=== PATIENT | female | born 1975 | race Caucasian/White ===

== ENCOUNTER 2018-06-16 12:47 | Emergency (ER) | payer OTHER, SELFPAY ==
--- NOTE | 2018-06-16 12:57 | ED.GENADULT ---
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 She states that she was working with the bees at the time. Was wearing her suit the time. States that she was attacked by the bees. Has never had a anaphylactic reaction. Did place [id number] skin remedies over the stings prior to arrival. Is not having any nausea or vomiting or problems breathing. Related Data Home Medications Medication Instructions Recorded Confirmed citalopram 40 mg PO QPM 06/16/18 06/16/18 estradiol 1 mg PO QPM 06/16/18 06/16/18 losartan 50 mg PO QPM 06/16/18 06/16/18 metformin 500 mg PO BID 06/16/18 06/16/18 Allergies Allergy/AdvReac Type Severity Reaction Status Date / Time Penicillins [PENICILLINS] Allergy Severe PT STATES Verified 06/16/18 13:03 I HAD TO HAVE MY HEART RESTARTED Review of Systems Constitutional Denies fever(s) ENT Ears, Nose, Mouth, and Throat: Denies vertigo Cardiovascular Denies chest pain and Denies dyspnea Respiratory Denies cough and Denies dyspnea Gastrointestinal Gastrointestinal: Denies abdominal pain, Denies nausea and Denies vomiting Musculoskeletal Denies myalgias and Denies arthralgias Integumentary/Breasts Comments: Bee stings Neurologic Denies behavioral changes and Denies vertigo Psychiatric Denies behavioral changes Hematologic/Lymphatic Denies easy bleeding and Denies easy bruising [facility] Medical History Healthy adult (Acute) Surgical History History of third molar tooth extraction Status post laparoscopic supracervical hysterectomy (04/19/16) Status post laparoscopy Social History Smoking Status: Never smoker Exam Initial Vital Signs Initial Vital Signs: Vital Signs Temperature 98.1 F 06/16/18 12:59 Pulse Rate 93 H 06/16/18 12:59 Respiratory Rate 18 06/16/18 12:59 Blood Pressure 180/91 H 06/16/18 12:59 Pulse Oximetry 98 06/16/18 12:59 Const General: cooperative, healthy appearing, comfortable, well developed, well groomed and No acute distress Orientation: alert, awake and oriented x3 HENMT Head: normal to inspection and normocephalic Resp Effort & Inspection: normal respiratory effort and able to speak in complete sentences Cardio Rate: tachycardic Rhythm: regular rhythm Heart Sounds: no murmurs Pulses: radial pulses present GI Inspection: non-distended Palpation: soft, No firm and No tender Skin Other: Multiple bee stings on bilateral lower extremities with stingers in place. Neuro General: alert, awake and oriented x3 Course Orders Ordered: Discontinued Medications Prednisone (Deltasone) 40 mg PO NOW ONE Stop: 06/16/18 13:07 Last Admin: 06/16/18 13:10 Dose: 40 mg Vital Signs - 8 hr 06/16/18 12:59 Temperature 98.1 F Pulse Rate 93 H Respiratory Rate 18 Blood Pressure 180/91 H Pulse Oximetry 98 Medical Decision Making MDM Narrative Medical decision making narrative: No respiratory distress. No signs of anaphylaxis. Patient had approximately 15 stings on bilateral lower extremities. I did remove the stingers for many of those stings. There is no signs of infection around the area. Patient was given a dose of steroids here in the emergency department. Will hold on any antibiotics for now. Patient was given return precautions. She expressed understanding and agreement with plan. Discharge Plan Departure Patient Disposition: Home Clinical Impression: Bee sting reaction Instructions: How to Care for an Insect Bite or Sting, Insect Bites and Stings (Alternative Therapy), DI for Insect Bites and Stings Activity Restrictions/Additional Instructions: Recommend that you keep the sites on her lower extremity clean with soap and water. Return to the emergency department for any new symptoms, problems breathing, signs of infection, or any other concerning symptoms. Prescriptions: No Action losartan 50 mg tablet 50 mg PO QPM RF: 0 metformin 500 mg tablet 500 mg PO BID RF: 0 citalopram 40 mg tablet 40 mg PO QPM RF: 0 estradiol 1 MG tablet 1 mg PO QPM RF: 0
[2018-06-16 12:59] VITALS: BP 180/91; PULSE 93; RESP 18; TEMP 36.7; O2SAT 98
[2018-06-16] MEDS: predniSONE 20 MG TABLET 40 MG PO (13:10)
[2018-06-16] MEDS: HYDROCODONE/ACET 5/325 TABLET 1 TAB PO (13:56)
[2018-06-16 14:17] VITALS: BP 155/106; PULSE 96; RESP 18; O2SAT 98
== END 2018-06-16 14:16 | disposition home or self-care (01) ==
PROVIDERS: Emergency Provider Emergency Medicine; PCP Obstetrics & Gynecology
DX: T63.441A Toxic effect of venom of bees, accidental (unintentional), initial encounter (principal)
CPT/HCPCS: 99282; 99283

== ENCOUNTER → 2019-03-14 14:04 | Outpatient (CLI) | payer OTHER, SELFPAY ==
[2019-03-14 14:30] LABS: Hemoglobin A1C% w Est Avg Glu 5.5 % (4.0-6.0)
== END ==
PROVIDERS: PCP Student in an Organized Health Care Education/Training Program; Visit Provider Student in an Organized Health Care Education/Training Program
DX: E11.9 Type 2 diabetes mellitus without complications (principal)
CPT/HCPCS: 36415; 83036

== ENCOUNTER → 2019-04-06 14:52 | Outpatient (CLI) | payer OTHER, SELFPAY ==
--- NOTE | 2019-04-06 14:54 | DI.MRI.S_ITS ---
PROCEDURE: MR CERVICAL SPINE WO CON INDICATIONS: Neck pain. Left arm/hand numbness TECHNIQUE: Noncontrast sagittal T1 spin echo and T2 fast spin echo, sagittal STIR, foraminal oblique sagittal T2 fast spin echo, and axial gradient echo or T2 fast spin echo through the cervical spine. COMPARISON: None. FINDINGS: Image quality: Excellent. Alignment and Curvature: There is normal bony alignment. Bone Marrow: Marrow demonstrates normal overall signal. Spinal Cord: Visualized spinal cord has normal size and signal. No cerebellar tonsillar herniation. Paraspinous Soft Tissues: No paravertebral masses. Prevertebral soft tissues are normal in thickness. C2-C3: Normal appearance. C3-C4: Normal appearance. C4-C5: Mild to moderate degenerative disc disease with disc height reduction and desiccation and a posterior midline disc protrusion that impinges upon the anterior midline of the cervical cord at this level but does not distort the cord. Focal anterior mild spinal stenosis is present as a result.. C5-C6: The degenerative disc disease at this level is moderately severe, greater at into the left of midline than to the right, with a focal contiguous disc herniation/disc protrusion that extends to impinge significantly upon the left anterior cervical cord, and also there is effacement of CSF from the anterior and posterior thecal sac at this level from a broad-based transverse disc bulge superimposed. Moderately severe to severe spinal stenosis at this level is present greater on the left than the right. C6-C7: Normal appearance except for a slight degree of spinal stenosis due to a slight posterior transverse broad-based disc bulge. C7-T1: Normal appearance. IMPRESSION: 1. A free herniated disc fragment is not found. 2. There is severe spinal stenosis focally at C5-6 from what likely is a acute or subacute disc protrusion contiguous with the left posterior disc annulus, impinging upon and distorting the left anterior cervical cord with superimposed spinal stenosis at this level from generalized posterior disc bulging. 3. C4-5 degenerative disc disease is mild to moderate, with focal midline mild spinal stenosis impinging on the anterior cord to a mild degree at this level. Dictated by: Yonatan Hernandez M.D. on 04/06/2019 at 17:42 Approved by: Yonatan Hernandez M.D. on 04/06/2019 at 17:46
--- NOTE | 2019-04-06 14:54 | DI.MG.S_ITS ---
BILATERAL DIGITAL SCREENING MAMMOGRAM 3D/2D WITH CAD: 04/06/2019 CLINICAL: Routine screening. Comparison is made to exam dated: 10/18/2017 mammogram - [facility]. There are scattered fibroglandular elements in both breasts. Current study was also evaluated with a Computer Aided Detection (CAD) system. No significant masses, calcifications, or other findings are seen in either breast. There has been no significant interval change. IMPRESSION: NEGATIVE There is no mammographic evidence of malignancy. A 1 year screening mammogram is recommended. This exam was interpreted at Station ID: [id number]. NOTE: For mammograms, a report in lay terms will be sent to the patient. Approximately 15% of breast malignancies will not be visualized mammographically. In the management of a palpable breast mass, a negative mammogram must not discourage biopsy of a clinically suspicious lesion. Electronically Signed By: Rodger mcleod/kathleen:04/07/2019 10:49:45 letter sent: Normal Exam ACR BI-RADS Category 1: Negative [id number]
== END ==
PROVIDERS: PCP Student in an Organized Health Care Education/Training Program; Visit Provider Student in an Organized Health Care Education/Training Program
DX: Z12.31 Encounter for screening mammogram for malignant neoplasm of breast (principal); R20.2 Paresthesia of skin; M50.321 Other cervical disc degeneration at C4-C5 level; M50.322 Other cervical disc degeneration at C5-C6 level; M48.02 Spinal stenosis, cervical region
CPT/HCPCS: 72141; 77063; 77067

== ENCOUNTER → 2019-07-19 15:31 | Outpatient (CLI) | payer OTHER, SELFPAY ==
[2019-07-19 16:10] LABS: Add Manual Diff / Slide Review NO; Basophils Absolute Auto 100 /uL (0-100); Basophils Percent Auto 0.8 % (0-2); Eosinophils Absolute Auto 100 /uL (0-450); Eosinophils Percent Auto 1.9 % (2-4); Hematocrit 42.3 % (36-46); Hemoglobin 14.4 g/dL (12.0-16.0); Lymphocytes Absolute Auto 2600 /uL (1100-4500); Lymphocytes Percent Auto 35.1 % (25-40); Mean Corpuscular HGB Conc 34.1 % (30-36); Mean Corpuscular Hemoglobin 31.1 PG (26-34); Mean Corpuscular Volume 91.1 fL (80-100); Monocytes Absolute Auto 400 /uL (0-900); Monocytes Percent Auto 5.8 % (3-14); Neutrophils Absolute Auto 4100 /uL (1500-7000); Neutrophils Percent Auto 56.4 % (50-75); Platelet Count 265 X10^3/uL (150-400); Red Blood Cell Count 4.65 X10^6/uL (4.0-5.2); Red Cell Distribution Width 13.2 % (11.6-14.8); White Blood Cell Count 7.3 X10^3/uL (4.5-11.0)
[2019-07-19 16:47] LABS: Hemoglobin A1C% w Est Avg Glu 5.5 % (4.0-6.0)
[2019-07-19 17:05] LABS: BUN Creatinine Ratio 21.3 (6-22); Blood Urea Nitrogen 17 mg/dL (7-17); Calcium 9.5 mg/dL (8.4-10.2); Carbon Dioxide 27 mmol/L (22-32); Chloride 101 mmol/L (98-107); Estimated Glomerular Filt Rate > 60.0 mL/min (>60); Glucose 160 mg/dL (70-100); HEMOLYSIS < 15 (0-50); Potassium 4.2 mmol/L (3.4-5.1); Sodium 137 mmol/L (137-145)
[2019-07-19 18:15] LABS: Prothrombin Time 11.1 SECONDS (10.1-12.7)
[2019-07-19 18:18] LABS: PTT Partial Thromboplastin Tim 34 SECONDS (26.4-36.2)
== END ==
PROVIDERS: Family Provider Student in an Organized Health Care Education/Training Program; PCP Student in an Organized Health Care Education/Training Program; Visit Provider Neurological Surgery
DX: Z01.818 Encounter for other preprocedural examination (principal); M54.12 Radiculopathy, cervical region
CPT/HCPCS: 36415; 80048; 83036; 85025; 85610; 85730; 87077; 87081; 87147

== ENCOUNTER → 2020-07-03 15:48 | Outpatient (CLI) | payer OTHER, SELFPAY ==
[2020-07-04 08:50] LABS: COVID19 Sendout Not Detected (Not Detect)
== END ==
PROVIDERS: Family Provider Student in an Organized Health Care Education/Training Program; PCP Student in an Organized Health Care Education/Training Program; Visit Provider Physician Assistant
DX: Z11.59 Encounter for screening for other viral diseases (principal)
CPT/HCPCS: 87635

== ENCOUNTER 2020-07-06 15:05 | Emergency (ER) | payer BC, SELFPAY ==
[2020-07-06] VITALS (7 sets, daily range): BP systolic 170–177; BP diastolic 72–102; PULSE 62–71; RESP 12–14; TEMP 37.1; O2SAT 95–99
--- NOTE | 2020-07-06 15:53 | DI.CT.S_ITS ---
PROCEDURE: CT ABDOMEN PELVIS W CON INDICATIONS: RLQ hip pain with fever TECHNIQUE: After the administration of intravenous contrast, 5 mm thick sections acquired from the diaphragm to the symphysis. 5 mm coronal and sagittal reformats were acquired. For radiation dose reduction, the following was used: automated exposure control, adjustment of mA and/or kV according to patient size. COMPARISON: None. FINDINGS: Image quality: Excellent. ABDOMEN: Lung bases: Lung bases are clear. Heart size is normal. Solid organs: Liver is normal in size and enhancement. Diffuse fatty liver infiltration is noted. Gallbladder wall is not thickened. Biliary system is non dilated. Pancreas enhances normally. Spleen is normal in size and enhancement. No adrenal nodules. Kidneys demonstrate normal size and enhancement, without hydronephrosis. Peritoneum and bowel: A normal appendix is seen. No focal right lower quadrant inflammatory changes are seen. Bowel loops demonstrate normal wall thickness and caliber. No free fluid or air. Nodes and vessels: No retroperitoneal or mesenteric adenopathy by size criteria. Aorta and inferior vena cava are normal in size. Miscellaneous: No ventral hernias. PELVIS: Genitourinary: Bladder wall thickness is normal. This patient is status post supracervical hysterectomy. No adnexal masses are seen. Miscellaneous: No inguinal hernias or adenopathy. Bones: In this patient with this given history, scrutiny is given to the right hip. Degenerative changes are seen in the right hip, without joint effusion or significant surrounding inflammatory change. No suspicious bony lesions. No vertebral body compression fractures. IMPRESSION: No significant right hip abnormality is seen. Normal appendix. Incidental note is made of: Fatty infiltration of the liver Supracervical hysterectomy Dictated by: Thong Browning M.D. on 07/06/2020 at 15:40 Approved by: Thong Browning M.D. on 07/06/2020 at 15:42
--- NOTE | 2020-07-06 15:56 | ED_ITS ---
HPI - Fever General Chief Complaint: Weakness Stated Complaint: Sick Last Week, Severe Back Pain Time Seen by Provider: 07/06/20 15:22 Source: patient Mode of arrival: Wheelchair Limitations: no limitations History of Present Illness HPI Narrative: Patient is a 44 old female who presents with body aches fever and right hip pain and abdominal pain. She states that about 6 days ago she developed fever and body aches in severe tiredness. She says that she actually slept for at least 2 days without getting up eating or drinking. She had body aches all over she progressively got a little bit better she actually had a COVID-19 test 4 days ago and it was negative however she has this right sort of hip full length abdominal pain which she cannot find a comfortable position for. She denies any painful or frequent urination. She does have a history of polycystic ovarian disease and endometriosis. She states that she and her tried to have intercourse about a week and half ago she says he was unable to enter stating that there is a wall. She denies any vaginal discharge or foul smell. complaint: fever and malaise Temperature Source: subjective Related Data Home Medications Medication Instructions Recorded Confirmed gabapentin 600 mg tablet 600 mg PO DAILY 04/22/20 07/03/20 Previous Rx's Medication Instructions Recorded methocarbamol 750 mg tablet 750 mg PO TID PRN #90 tab 09/26/19 clonazepam 0.5 mg tablet 0.5 mg PO BID #60 tab 12/21/19 citalopram 20 mg tablet 20 mg PO QPM #90 tab 01/02/20 propranolol 40 mg tablet 40 mg PO BID #180 tab 03/25/20 diazepam [Valium] 5 mg PO Q12HR PRN #10 tab 07/06/20 hydrocodone-acetaminophen 1 tab PO Q6H PRN #10 tab 07/06/20 Allergies Allergy/AdvReac Type Severity Reaction Status Date / Time Penicillins [PENICILLINS] Allergy Severe PT STATES Verified 07/03/20 15:47 I HAD TO HAVE MY HEART RESTARTED amoxicillin Allergy Rash, Verified 07/03/20 15:47 Fever, and Flu like symtems amlodipine AdvReac Intermediate Dizziness Verified 07/03/20 15:47 Review of Systems Review of Systems ROS Unobtainable: All systems reviewed & are unremarkable except as noted in HPI and below Constitutional Constitutional: Reports body ache(s), Reports chills, Reports daytime sleepiness, Reports fatigue, Reports fever(s), Reports lethargy and Reports poor appetite ENT Ears, Nose, Mouth, and Throat: Denies change in voice, Denies neck pain and Denies sore throat Cardiovascular Cardiovascular: Denies chest pain, Denies irregular heart rhythm, Denies lightheadedness, Denies palpitations, Denies dyspnea, Denies dyspnea on exertion and Denies orthopnea Respiratory Respiratory: Denies cough, Denies dyspnea, Denies dyspnea on exertion and Denies wheezing Gastrointestinal Gastrointestinal: Denies abdominal pain, Denies change in bowel habits, Denies diarrhea, Denies nausea and Denies vomiting Musculoskeletal Musculoskeletal: Reports myalgias, Reports arthralgias and Denies neck pain Integumentary/Breasts Skin/Breast: Denies pruritus, Denies erythema, Denies rash and Denies wounds Endocrine Endocrine: Reports fatigue and Denies palpitations Allergic/Immunologic Allergic/Immunologic: Denies wheezing Patient History Medical History Abnormal Pap smear of cervix (Acute ~1985) Chicken pox (Resolved ~1982) Depression (Chronic ~2011) Endometriosis (Acute ~1985) Fibroids (Acute ~1985) Healthy adult (Acute) Heavy menstrual period (Chronic ~1985) Hypertension (Acute ~1999) Infertility (Chronic ~1985) Insomnia (Chronic) Irregular menstrual cycle (Chronic ~1985) Morbid obesity with body mass index (BMI) of 40.0 to 49.9 (Chronic) Obesity (BMI 30-39.9) (Resolved) Obstructive sleep apnea (Chronic) Ovarian cyst (Chronic ~1985) Painful menstrual periods (Chronic ~1985) PCOS (polycystic ovarian syndrome) (Chronic) URI (upper respiratory infection) (Acute) Surgical History Anesthesia (Resolved) Deviated septum (Resolved) H/O knee surgery (Resolved) H/O wrist surgery (Resolved) History of facial surgery (Resolved ~2010) History of surgery on right wrist (Resolved ~1982) History of third molar tooth extraction (Resolved) Status post cervical discectomy (Acute) Status post cervical spinal fusion (Acute) Status post laparoscopic supracervical hysterectomy (Resolved 04/19/16) Status post laparoscopy (Resolved ~1999) Family History Mother COPD (chronic obstructive pulmonary disease) Hypertension Depression Brother Depression Grandfather Liver disease Grandmother Diabetes mellitus Hypertension Social History Smoking Status: Former smoker Smoking Status: Former smoker alcohol intake frequency: 0-2 drinks per day Substance Use Type: does not use Exam Initial Vital Signs Initial Vital Signs: Vital Signs Temperature 98.7 F 07/06/20 15:25 Pulse Rate 64 07/06/20 15:25 Respiratory Rate 14 07/06/20 15:25 Blood Pressure 172/82 H 07/06/20 15:25 Pulse Oximetry 97 07/06/20 15:25 GENERAL: The patient lying flat on gurney overweight female but no acute distress and in no acute distress. HEENT: Head atraumatic,EOMI, pupils reactive, face symmetric, moist mucous membranes CARDIOVASCULAR: Regular rate and rhythm without murmurs, rubs or gallops. RESPIRATORY: Breath sounds equal bilaterally, no wheezes rales or rhonchi. ABDOMEN: Soft, nontender. Normoactive bowel sounds all 4 quadrants. No guarding or rebound. EXTREMITIES: Normal range of motion, no clubbing or edema. Neurovascularly intact. No pain with right hip internal and external rotation no erythema BACK: Tender right lower lumbar a buttock area no midline tenderness NEUROLOGICAL: Alert and oriented x4.Normal gait and speech. SKIN: Warm, dry, no laceration, no petechiae, no rashes or lesions. Course Orders Ordered: Discontinued Medications Hydrocodone Bitart/Acetaminophen (Vicodin 5/325 Prepack) 1 bottle MISC SEEINSTR ONE Stop: 07/06/20 18:04 Last Admin: 07/06/20 18:06 Dose: 1 bottle Documented by: JOZEF Sodium Chloride (Normal Saline 0.9%) 1,000 mls @ 1,000 mls/hr IV CONT BARTOLO Last Infusion: 07/06/20 18:01 Dose: 0 mls/hr Documented by: Admin: 07/06/20 16:04 Dose: 1,000 mls/hr Documented by: JOZEF Ketorolac Tromethamine (Toradol) 30 mg IV NOW ONE Stop: 07/06/20 17:39 Last Admin: 07/06/20 17:42 Dose: 30 mg Documented by: JOZEF Morphine Sulfate (Morphine) 4 mg IV NOW ONE Stop: 07/06/20 15:54 Last Admin: 07/06/20 16:04 Dose: 4 mg Documented by: JOZEF Vital Signs Vital signs: Vital Signs - 8 hr 07/06/20 15:25 07/06/20 16:19 07/06/20 16:32 Temperature 98.7 F Pulse Rate 64 71 69 Respiratory Rate 14 Blood Pressure 172/82 H Pulse Oximetry 97 97 99 07/06/20 16:48 07/06/20 17:00 07/06/20 17:01 Temperature Pulse Rate 68 65 66 Respiratory Rate 12 14 14 Blood Pressure 177/102 H 170/72 H Pulse Oximetry 96 96 97 MDM - Fever Lab Data Attestation: I reviewed the patient's lab results. Result diagrams: 07/06/20 16:04 07/06/20 16:04 Labs: Lab Results 07/06/20 07/06/20 07/06/20 Range/Units 16:04 16:04 16:04 WBC 8.8 (4.5-11.0) X10^3/uL RBC 4.51 (4.0-5.2) X10^6/uL Hgb 14.2 (12.0-16.0) g/dL Hct 40.5 (36-46) % MCV 89.8 (80-100) fL MCH 31.5 (26-34) PG MCHC 35.1 (30-36) % RDW 12.6 (11.6-14.8) % Plt Count 258 (150-400) X10^3/uL Neut % (Auto) 65.1 (50-75) % Lymph % (Auto) 22.9 L (25-40) % [place] % (Auto) 10.3 (3-14) % Eos % (Auto) 1.0 L (2-4) % Baso % (Auto) 0.7 (0-2) % Neut # (Auto) 5700 (4590-5850) /uL Lymph # (Auto) 2000 (7097-1442) /uL [place] # (Auto) 900 (0-900) /uL Eos # (Auto) 100 (0-450) /uL Baso # (Auto) 100 (0-100) /uL Sodium 136 L (137-145) mmol/L Potassium 4.2 (3.4-5.1) mmol/L Chloride 103 (98-107) mmol/L Carbon Dioxide 28 (22-32) mmol/L BUN 16 (7-17) mg/dL Creatinine 0.80 (0.52-1.04) mg/dL Estimated GFR > 60.0 (>60) mL/min BUN/Creatinine Ratio 20.0 (6-22) Glucose 111 H (70-100) mg/dL Lactate (0.7-2.1) mmol/L Calcium 9.1 (8.4-10.2) mg/dL Total Bilirubin 0.3 (0.2-1.3) mg/dL AST 25 (14-36) IU/L ALT 23 (<35) IU/L Alkaline Phosphatase 84 (38-126) U/L Total Protein 7.1 (6.3-8.2) g/dL Albumin 4.1 (3.5-5.0) g/dL Globulin 3.0 (1.7-4.1) g/dL Albumin/Globulin Ratio 1.4 (1.0-2.8) Procalcitonin < 0.05 (<0.5) ng/mL COVID-19 PCR (Negative) 07/06/20 07/06/20 Range/Units 16:04 16:05 WBC (4.5-11.0) X10^3/uL RBC (4.0-5.2) X10^6/uL Hgb (12.0-16.0) g/dL Hct (36-46) % MCV (80-100) fL MCH (26-34) PG MCHC (30-36) % RDW (11.6-14.8) % Plt Count (150-400) X10^3/uL Neut % (Auto) (50-75) % Lymph % (Auto) (25-40) % [place] % (Auto) (3-14) % Eos % (Auto) (2-4) % Baso % (Auto) (0-2) % Neut # (Auto) (2396-5511) /uL Lymph # (Auto) (1827-7083) /uL [place] # (Auto) (0-900) /uL Eos # (Auto) (0-450) /uL Baso # (Auto) (0-100) /uL Sodium (137-145) mmol/L Potassium (3.4-5.1) mmol/L Chloride (98-107) mmol/L Carbon Dioxide (22-32) mmol/L BUN (7-17) mg/dL Creatinine (0.52-1.04) mg/dL Estimated GFR (>60) mL/min BUN/Creatinine Ratio (6-22) Glucose (70-100) mg/dL Lactate 0.9 (0.7-2.1) mmol/L Calcium (8.4-10.2) mg/dL Total Bilirubin (0.2-1.3) mg/dL AST (14-36) IU/L ALT (<35) IU/L Alkaline Phosphatase (38-126) U/L Total Protein (6.3-8.2) g/dL Albumin (3.5-5.0) g/dL Globulin (1.7-4.1) g/dL Albumin/Globulin Ratio (1.0-2.8) Procalcitonin (<0.5) ng/mL COVID-19 PCR Negative (Negative) Point of Care Testing Test Results Negative Urine Dip Bedside Urine Glucose Negative Bedside Urine Bilirubin - Negative Bedside Urine Ketone - Negative Urine Specific [place] 1.010 Bedside Urine Occult Blood - Negative Bedside Urine pH 6.0 Bedside Urine Protein - Negative Bedside Urine Urobilinogen - Negative Bedside Urine Nitrite - Negative Bedside Urine Leukocytes - Negative Esterase Imaging Data CT scan - abdomen/pelvis: Radiologist's Impression: PROCEDURE: CT ABDOMEN PELVIS W CON INDICATIONS: RLQ hip pain with fever TECHNIQUE: After the administration of intravenous contrast, 5 mm thick sections acquired from the diaphragm to the symphysis. 5 mm coronal and sagittal reformats were acquired. For radiation dose reduction, the following was used: automated exposure control, adjustment of mA and/or kV according to patient size. COMPARISON: None. FINDINGS: Image quality: Excellent. ABDOMEN: Lung bases: Lung bases are clear. Heart size is normal. Solid organs: Liver is normal in size and enhancement. Diffuse fatty liver infiltration is noted. Gallbladder wall is not thickened. Biliary system is non dilated. Pancreas enhances normally. Spleen is normal in size and enhancement. No adrenal nodules. Kidneys demonstrate normal size and enhancement, without hydronephrosis. Peritoneum and bowel: A normal appendix is seen. No focal right lower quadrant inflammatory changes are seen. Bowel loops demonstrate normal wall thickness and caliber. No free fluid or air. Nodes and vessels: No retroperitoneal or mesenteric adenopathy by size criteria. Aorta and inferior vena cava are normal in size. Miscellaneous: No ventral hernias. PELVIS: Genitourinary: Bladder wall thickness is normal. This patient is status post supracervical hysterectomy. No adnexal masses are seen. Miscellaneous: No inguinal hernias or adenopathy. Bones: In this patient with this given history, scrutiny is given to the right hip. Degenerative changes are seen in the right hip, without joint effusion or significant surrounding inflammatory change. No suspicious bony lesions. No vertebral body compression fractures. IMPRESSION: No significant right hip abnormality is seen. Normal appendix. Incidental note is made of: Fatty infiltration of the liver Supracervical hysterectomy Dictated by: Thong Browning M.D. on 07/06/2020 at 15:40 MDM Narrative Medical decision making narrative: The patient is afebrile without leukocytosis lactic acid her procalcitonin. No obvious source of infection. She actually is more tender in her right lower lumbar area this is the probable more like sciatic and low back pain. No sign of infection at this time suddenly does not seem septic. She has no vaginal symptoms gonorrhea and chlamydia are sent out and she is actually scheduled for a Pap smear in 3 days will defer pelvic until then. Discharge Plan Departure Patient Disposition: Home Clinical Impression: Low back pain Qualifiers: Chronicity: acute Back pain laterality: right Sciatica presence: without sciatica Qualified Code(s): M54.5 - Low back pain Discharge Date/Time: 07/06/20 18:19 Instructions: DI for Low Back Pain Activity Restrictions/Additional Instructions: *You have been diagnosed with low back *What to do: Recommend heating pad and stretches to help with back issue. May require MRI if not improving. No infection is found at this time. No need for antibiotics *Continue to take medications as directed [place] 1 tablet every 6 hours if needed for severe pain Ibuprofen 600 mg every 6-8 hours if needed for [id number] pain Valium 5 mg every 12 hours if needed for muscle spasm--do not take with clonazepam *Follow up with your primary care provider in 2-3 days *Return to ER if you should have increased leg weakness change in urine or stool, fever or any new, worsening or concerning symptoms CONTROLLED SUBSTANCE DISCHARGE (Narcotoic/benzodiazepine/Flexeril/Phenergan) 1. You have been prescribed narcotic medications, it does have acetaminophen /Tylenol/paracetamol in it so do not take extra Tylenol or Tylenol containing products TRAMADOL DOES NOT CONTAIN TYLENOL 2. Please understand that we cannot provide further refills of narcotics, b enzodiazepines or controlled substances through the ED and her pain management will need to be through your provider. 3. While on these medications you cannot drive or operate heavy machinery. 4. You cannot sign legal documents or perform any duties such as this. 5. As long as you're taking opiate pain medications he should also be taking a stool softener such as Colace, Dulcolax, MiraLAX or prune juice, to help avoid constipation. Prescriptions: New hydrocodone-acetaminophen 5-325 mg tablet 1 tab PO Q6H PRN (Reason: pain) Qty: 10 RF: 0 diazepam [Valium] 5 mg tablet 5 mg PO Q12HR PRN (Reason: muscle spasm) Qty: 10 RF: 0 No Action clonazepam 0.5 mg tablet 0.5 mg PO BID Qty: 60 RF: 2 citalopram 20 mg tablet 20 mg PO QPM Qty: 90 RF: 3 propranolol 40 mg tablet 40 mg PO BID Qty: 180 RF: 3 methocarbamol 750 mg tablet 750 mg PO TID PRN (Reason: muscle spasm) Qty: 90 RF: 1 gabapentin 600 mg tablet 600 mg PO DAILY RF: 0 Referrals: Carroll Cary MD [Primary Care Provider] -
[2020-07-06] MEDS: MORPHINE 4 MG/ML INJ IV (16:04)
[2020-07-06] MEDS: SODIUM CHLORIDE 0.9% 1,000 ML 1000 ML IV (16:04)
[2020-07-06 16:07] LABS: Add Manual Diff / Slide Review NO; Basophils Absolute Auto 100 /uL (0-100); Basophils Percent Auto 0.7 % (0-2); Eosinophils Absolute Auto 100 /uL (0-450); Hematocrit 40.5 % (36-46); Hemoglobin 14.2 g/dL (12.0-16.0); Lymphocytes Absolute Auto 2000 /uL (1100-4500); Lymphocytes Percent Auto 22.9 % (25-40); Mean Corpuscular HGB Conc 35.1 % (30-36); Mean Corpuscular Hemoglobin 31.5 PG (26-34); Mean Corpuscular Volume 89.8 fL (80-100); Monocytes Absolute Auto 900 /uL (0-900); Monocytes Percent Auto 10.3 % (3-14); Neutrophils Absolute Auto 5700 /uL (1500-7000); Neutrophils Percent Auto 65.1 % (50-75); Platelet Count 258 X10^3/uL (150-400); Red Blood Cell Count 4.51 X10^6/uL (4.0-5.2); Red Cell Distribution Width 12.6 % (11.6-14.8); White Blood Cell Count 8.8 X10^3/uL (4.5-11.0)
[2020-07-06 16:12] LABS: Lactate (Lactic Acid) 0.9 mmol/L (0.7-2.1)
[2020-07-06 16:13] LABS: Alanine Aminotransferase 23 IU/L (<35); Albumin 4.1 g/dL (3.5-5.0); Albumin Globulin Ratio 1.4 (1.0-2.8); Alkaline Phosphatase 84 U/L (38-126); Aspartate Aminotransferase 25 IU/L (14-36); Bilirubin Total 0.3 mg/dL (0.2-1.3); Blood Urea Nitrogen 16 mg/dL (7-17); Calcium 9.1 mg/dL (8.4-10.2); Carbon Dioxide 28 mmol/L (22-32); Chloride 103 mmol/L (98-107); Estimated Glomerular Filt Rate > 60.0 mL/min (>60); Glucose 111 mg/dL (70-100); HEMOLYSIS < 15 (0-50); Potassium 4.2 mmol/L (3.4-5.1); Sodium 136 mmol/L (137-145); Total Protein 7.1 g/dL (6.3-8.2)
[2020-07-06 16:32] LABS: COVID19 -Nasal RAPID Negative (Negative)
[2020-07-06 16:49] LABS: Procalcitonin < 0.05 ng/mL (<0.5)
[2020-07-06] MEDS: KETOROLAC 60 MG/2 ML VIAL 30 MG IV (17:42)
[2020-07-06] MEDS: HYDROCODONE/ACET 5/325 PREPACK 1 BOTTLE MISC (18:06)
== END 2020-07-06 18:19 | disposition home or self-care (01) ==
PROVIDERS: Emergency Provider Emergency Medicine; Family Provider Student in an Organized Health Care Education/Training Program; PCP Student in an Organized Health Care Education/Training Program
DX: R53.1 Weakness (principal); M54.5 Low back pain
CPT/HCPCS: 36415; 74177; 80053; 81003; 81025; 83605; 84145; 85025; 87491; 87591; 87635; 96361; 96374; 96375; 99284; J1885; J2270; Q9967

== ENCOUNTER 2020-07-08 06:21 | Emergency (ER) | payer OTHER, SELFPAY ==
[2020-07-08] VITALS (12 sets, daily range): BP systolic 153–188; BP diastolic 74–97; PULSE 57–96; RESP 16–20; TEMP 36.6; O2SAT 92–97; BMI 39.1
--- NOTE | 2020-07-08 06:34 | ED_ITS ---
HPI - General Adult <Michael Gabriel DO - Last Filed: 07/09/20 00:23> General Chief complaint: Back Pain/Injury Stated complaint: Severe low back pain and right hip pain Time Seen by Provider: 07/08/20 06:24 Source: patient Mode of arrival: Wheelchair Limitations: no limitations History of Present Illness HPI narrative: Patient is a 44-year-old female who was seen in the emergency department approximately 48 hours ago for right-sided abdomen/hip/lower back pain. During that emergency department visit patient had blood work which was unremarkable. Urinalysis was unremarkable. CT scan which was unremarkable. Was discharged home with pain control. Patient states that she has not filled the prescription that she was given during that visit. She states that since she left her symptoms improved for short period time but then returned. She describes the same symptoms she had during her last visit. It does come in ways. She states it is sharp/crampy pain. Difficult for her to describe. She feels it is deep down in her hip joint. Difficult for her to find a comfortable position. Related Data Home Medications Medication Instructions Recorded Confirmed gabapentin 600 mg tablet 600 mg PO DAILY 04/22/20 07/03/20 Previous Rx's Medication Instructions Recorded methocarbamol 750 mg tablet 750 mg PO TID PRN #90 tab 09/26/19 clonazepam 0.5 mg tablet 0.5 mg PO BID #60 tab 12/21/19 citalopram 20 mg tablet 20 mg PO QPM #90 tab 01/02/20 propranolol 40 mg tablet 40 mg PO BID #180 tab 03/25/20 diazepam [Valium] 5 mg PO Q12HR PRN #10 tab 07/06/20 hydrocodone-acetaminophen 1 tab PO Q6H PRN #10 tab 07/06/20 tramadol 50 mg PO Q6-8H PRN #12 tab 07/08/20 Allergies Allergy/AdvReac Type Severity Reaction Status Date / Time Penicillins [PENICILLINS] Allergy Severe PT STATES Verified 07/08/20 06:30 I HAD TO HAVE MY HEART RESTARTED amoxicillin Allergy Rash, Verified 07/08/20 06:30 Fever, and Flu like symtems amlodipine AdvReac Intermediate Dizziness Verified 07/08/20 06:30 Review of Systems <DO Uzair Cline Last Filed: 07/09/20 00:23> Constitutional Constitutional: Denies fatigue and Denies headache(s) ENT Ears, Nose, Mouth, and Throat: Denies headache(s) Cardiovascular Cardiovascular: Denies chest pain and Denies dyspnea Respiratory Respiratory: Denies dyspnea Gastrointestinal Gastrointestinal: Reports abdominal pain (Right lower abdomen), Denies nausea and Denies vomiting Genitourinary Genitourinary: Denies dysuria and Denies urinary urgency Genitourinary: Denies dysuria, Denies urinary urgency and Denies vaginal discharge Musculoskeletal Musculoskeletal: Reports arthralgias (Right hip) and Reports back pain (Right lower back) Integumentary/Breasts Skin/Breast: Denies rash Neurologic Neurologic: Denies behavioral changes, Denies headache(s) and Denies pare sthesias Psychiatric Psychiatric: Denies behavioral changes Endocrine Endocrine: Denies fatigue Hematologic/Lymphatic Hematologic/Lymphatic: Denies easy bleeding and Denies easy bruising Allergic/Immunologic Allergic/Immunologic: Denies urticaria Patient History <Michael Gabriel DO - Last Filed: 07/09/20 00:23> Medical History Abnormal Pap smear of cervix (Acute ~1985) Chicken pox (Resolved ~1982) Depression (Chronic ~2011) Endometriosis (Acute ~1985) Fibroids (Acute ~1985) Healthy adult (Acute) Heavy menstrual period (Chronic ~1985) Hypertension (Acute ~1999) Infertility (Chronic ~1985) Insomnia (Chronic) Irregular menstrual cycle (Chronic ~1985) Morbid obesity with body mass index (BMI) of 40.0 to 49.9 (Chronic) Obesity (BMI 30-39.9) (Resolved) Obstructive sleep apnea (Chronic) Ovarian cyst (Chronic ~1985) Painful menstrual periods (Chronic ~1985) PCOS (polycystic ovarian syndrome) (Chronic) URI (upper respiratory infection) (Acute) Surgical History Anesthesia (Resolved) Deviated septum (Resolved) H/O knee surgery (Resolved) H/O wrist surgery (Resolved) History of facial surgery (Resolved ~2010) History of surgery on right wrist (Resolved ~1982) History of third molar tooth extraction (Resolved) Status post cervical discectomy (Acute) Status post cervical spinal fusion (Acute) Status post laparoscopic supracervical hysterectomy (Resolved 04/19/16) Status post laparoscopy (Resolved ~1999) Family History Mother COPD (chronic obstructive pulmonary disease) Hypertension Depression Brother Depression Grandfather Liver disease Grandmother Diabetes mellitus Hypertension Social History Smoking Status: Former smoker Smoking Status: Former smoker alcohol intake frequency: 0-2 drinks per day Substance Use Type: does not use Exam <Michael Gabriel DO - Last Filed: 07/09/20 00:23> Initial Vital Signs Initial Vital Signs: Vital Signs Temperature 97.8 F 07/08/20 06:25 Pulse Rate 71 07/08/20 06:25 Respiratory Rate 20 07/08/20 06:25 Blood Pressure 176/84 H 07/08/20 06:25 Pulse Oximetry 96 07/08/20 06:25 Const General: cooperative Limitations: mental status not altered HENMT Head: normal to inspection and normocephalic Resp Effort & Inspection: normal respiratory effort Cardio Rate: regular rate Pulses: dorsalis pedis present on the right GI Inspection: non-distended Palpation: soft Back/Spine/Pelvis Back: No CVA tenderness Thoracic/Lumbar Spine: No paraspinal tenderness and No lumbar spinal tenderness Neuro General: patient alert and patient awake Extrem General: capillary refill normal Psych Appearance: grossly normal and well kempt <Linus Arcos MD - Last Filed: 07/08/20 11:05> Initial Vital Signs Initial Vital Signs: Vital Signs Temperature 97.8 F 07/08/20 06:25 Pulse Rate 71 07/08/20 06:25 Respiratory Rate 20 07/08/20 06:25 Blood Pressure 176/84 H 07/08/20 06:25 Pulse Oximetry 96 07/08/20 06:25 Course <Michael Gabriel DO - Last Filed: 07/09/20 00:23> Orders Ordered: Discontinued Medications Hydromorphone HCl (Dilaudid) 1 mg IV NOW ONE Stop: 07/08/20 06:35 Last Admin: 07/08/20 06:44 Dose: 1 mg Documented by: ALONDRA Sodium Chloride (Normal Saline 0.9%) 1,000 mls @ 1,000 mls/hr IV BOLUS ONE Stop: 07/08/20 07:33 Last Infusion: 07/08/20 07:50 Dose: 0 mls/hr Documented by: Admin: 07/08/20 06:44 Dose: 1,000 mls/hr Documented by: ALONDRA Ketorolac Tromethamine (Toradol) 30 mg IV NOW ONE Stop: 07/08/20 06:35 Last Admin: 07/08/20 06:44 Dose: 30 mg Documented by: ALONDRA Vital Signs Vital signs: Vital Signs - 8 hr 07/08/20 06:25 07/08/20 07:00 07/08/20 07:30 Temperature 97.8 F Pulse Rate 71 74 64 Respiratory Rate 20 Blood Pressure 176/84 H Pulse Oximetry 96 97 95 07/08/20 07:31 07/08/20 08:00 07/08/20 08:01 Temperature Pulse Rate 64 58 L 57 L Respiratory Rate Blood Pressure 153/74 H 154/80 H Pulse Oximetry 95 92 93 07/08/20 08:30 Temperature Pulse Rate 63 Respiratory Rate Blood Pressure Pulse Oximetry 95 <Linus Arcos MD - Last Filed: 07/08/20 11:05> Course Course Narrative: Care was assumed from Dr. Bush correct change of shift. The patient was seen approximately 2 days ago with acute onset of right lower abdominal pain, and right hip pain. Testing was done, there is no evidence of infection or inflammation on the testing done. She was discharged home. She returned this morning with resurgence of the pain. She says her right hip hurts so much that she cannot stand or walk. She has no numbness or weakness in the right leg. She initially presented with right lower back pain. CT of the pelvis was done on initial presentation, mild DJD of the right hip was noted. She is status post hysterectomy due to endometriosis. There was no pathology noted in the pelvis. She has no GI complaints. She denies dysuria or hematuria. She has a history of endometriosis, she is concerned endometriosis m ay be involved in the pain. She complained of fever with onset of pain. She has not had continued fever. She has no URI symptoms, no cough or dyspnea. Dr. Gabriel's evaluations been reviewed. Exam: Vital Signs are reviewed. Patient is alert and oriented, no apparent distress. She has been medicated. Abdomen: Obese, mild right lower quadrant pain without guarding rebound. Normal bowel sounds. Back: No significant tenderness. Extremities: Tenderness in the right anterior hip, minimal tenderness with motion of the right hip. She has normal flexion extension, abduction and adduction of the right hip without significant discomfort. The right leg is neurovascularly intact. Pelvis: In toward is normal. She has slight amount of white discharge, vaginal exam is otherwise normal. On the digital exam, she appears to have a stricture to the right vaginal wall, no masses are palpable. There is no other tenderness on the vaginal exam. I discussed the case with Dr. Cary, her PCM. The patient will be discharged on tramadol. She would probably benefit from both casing material weigher as well as ortho consult. Orders Ordered: Discontinued Medications Hydromorphone HCl (Dilaudid) 1 mg IV NOW ONE Stop: 07/08/20 06:35 Last Admin: 07/08/20 06:44 Dose: 1 mg Documented by: ALONDRA Sodium Chloride (Normal Saline 0.9%) 1,000 mls @ 1,000 mls/hr IV BOLUS ONE Stop: 07/08/20 07:33 Last Infusion: 07/08/20 07:50 Dose: 0 mls/hr Documented by: Admin: 07/08/20 06:44 Dose: 1,000 mls/hr Documented by: ALONDRA Ketorolac Tromethamine (Toradol) 30 mg IV NOW ONE Stop: 07/08/20 06:35 Last Admin: 07/08/20 06:44 Dose: 30 mg Documented by: ALONDRA Vital Signs Vital signs: Vital Signs - 8 hr 07/08/20 06:25 07/08/20 07:00 07/08/20 07:30 Temperature 97.8 F Pulse Rate 71 74 64 Respiratory Rate 20 Blood Pressure 176/84 H Pulse Oximetry 96 97 95 07/08/20 07:31 07/08/20 08:00 07/08/20 08:01 Temperature Pulse Rate 64 58 L 57 L Respiratory Rate Blood Pressure 153/74 H 154/80 H Pulse Oximetry 95 92 93 07/08/20 08:30 Temperature Pulse Rate 63 Respiratory Rate Blood Pressure Pulse Oximetry 95 Medical Decision Making <Michael Gabriel DO - Last Filed: 07/09/20 00:23> Medical Records Medical records reviewed: Yes I reviewed the patient's medical records. Lab Data Result diagrams: 07/08/20 06:45 07/08/20 08:45 Labs: Lab Results 07/08/20 07/08/20 07/08/20 Range/Units 06:45 08:45 08:45 WBC 7.8 (4.5-11.0) X10^3/uL RBC 4.71 (4.0-5.2) X10^6/uL Hgb 14.6 (12.0-16.0) g/dL Hct 42.3 (36-46) % MCV 89.8 (80-100) fL MCH 31.1 (26-34) PG MCHC 34.6 (30-36) % RDW 12.6 (11.6-14.8) % Plt Count 256 (150-400) X10^3/uL Neut % (Auto) 58.4 (50-75) % Lymph % (Auto) 30.3 (25-40) % [place] % (Auto) 9.5 (3-14) % Eos % (Auto) 1.3 L (2-4) % Baso % (Auto) 0.5 (0-2) % Neut # (Auto) 4600 (0111-4332) /uL Lymph # (Auto) 2400 (4298-3606) /uL [place] # (Auto) 700 (0-900) /uL Eos # (Auto) 100 (0-450) /uL Baso # (Auto) 0 (0-100) /uL ESR 12 (0-20) MM/HR Sodium 137 (137-145) mmol/L Potassium 4.2 (3.4-5.1) mmol/L Chloride 106 (98-107) mmol/L Carbon Dioxide 27 (22-32) mmol/L BUN 12 (7-17) mg/dL Creatinine 0.74 (0.52-1.04) mg/dL Estimated GFR > 60.0 (>60) mL/min BUN/Creatinine Ratio 16.2 (6-22) Glucose 108 H (70-100) mg/dL Calcium 8.5 (8.4-10.2) mg/dL Total Bilirubin 0.3 (0.2-1.3) mg/dL AST 19 (14-36) IU/L ALT 20 (<35) IU/L Alkaline Phosphatase 79 (38-126) U/L C-Reactive Protein 1.9 H (<1.0) mg/dL Total Protein 6.6 (6.3-8.2) g/dL Albumin 3.8 (3.5-5.0) g/dL Globulin 2.8 (1.7-4.1) g/dL Albumin/Globulin Ratio 1.4 (1.0-2.8) Lipase 109 (23-300) U/L Procalcitonin < 0.05 (<0.5) ng/mL MDM Narrative Medical decision making narrative: Symptoms do seem to be improving somewhat after medicines. Labs still pending. Care turned over to Dr. Arcos at 0730 to follow-up and disposition. <Linus Arcos MD - Last Filed: 07/08/20 11:05> Lab Data Labs: Lab Results 07/08/20 07/08/20 07/08/20 Range/Units 06:45 08:45 08:45 WBC 7.8 (4.5-11.0) X10^3/uL RBC 4.71 (4.0-5.2) X10^6/uL Hgb 14.6 (12.0-16.0) g/dL Hct 42.3 (36-46) % MCV 89.8 (80-100) fL MCH 31.1 (26-34) PG MCHC 34.6 (30-36) % RDW 12.6 (11.6-14.8) % Plt Count 256 (150-400) X10^3/uL Neut % (Auto) 58.4 (50-75) % Lymph % (Auto) 30.3 (25-40) % [place] % (Auto) 9.5 (3-14) % Eos % (Auto) 1.3 L (2-4) % Baso % (Auto) 0.5 (0-2) % Neut # (Auto) 4600 (6673-4039) /uL Lymph # (Auto) 2400 (3870-2804) /uL [place] # (Auto) 700 (0-900) /uL Eos # (Auto) 100 (0-450) /uL Baso # (Auto) 0 (0-100) /uL ESR 12 (0-20) MM/HR Sodium 137 (137-145) mmol/L Potassium 4.2 (3.4-5.1) mmol/L Chloride 106 (98-107) mmol/L Carbon Dioxide 27 (22-32) mmol/L BUN 12 (7-17) mg/dL Creatinine 0.74 (0.52-1.04) mg/dL Estimated GFR > 60.0 (>60) mL/min BUN/Creatinine Ratio 16.2 (6-22) Glucose 108 H (70-100) mg/dL Calcium 8.5 (8.4-10.2) mg/dL Total Bilirubin 0.3 (0.2-1.3) mg/dL AST 19 (14-36) IU/L ALT 20 (<35) IU/L Alkaline Phosphatase 79 (38-126) U/L C-Reactive Protein 1.9 H (<1.0) mg/dL Total Protein 6.6 (6.3-8.2) g/dL Albumin 3.8 (3.5-5.0) g/dL Globulin 2.8 (1.7-4.1) g/dL Albumin/Globulin Ratio 1.4 (1.0-2.8) Lipase 109 (23-300) U/L Procalcitonin < 0.05 (<0.5) ng/mL Discharge Plan Departure Patient Disposition: Home Clinical Impression: Acute pain of right hip, Vaginal pain Discharge Date/Time: 07/08/20 11:24 Instructions: DI for Hip Pain Activity Restrictions/Additional Instructions: Use crutches as needed. Tramadol every 6 hours as needed for pain. Follow-up via PCM, Dr. Cary, tomorrow as scheduled. You may benefit from both a casing material weigher as well as a ortho consult. Return to the ER as needed. Prescriptions: New tramadol 50 mg tablet 50 mg PO Q6-8H PRN (Reason: pain) Qty: 12 RF: 0 No Action clonazepam 0.5 mg tablet 0.5 mg PO BID Qty: 60 RF: 2 citalopram 20 mg tablet 20 mg PO QPM Qty: 90 RF: 3 propranolol 40 mg tablet 40 mg PO BID Qty: 180 RF: 3 methocarbamol 750 mg tablet 750 mg PO TID PRN (Reason: muscle spasm) Qty: 90 RF: 1 gabapentin 600 mg tablet 600 mg PO DAILY RF: 0 hydrocodone-acetaminophen 5-325 mg tablet 1 tab PO Q6H PRN (Reason: pain) Qty: 10 RF: 0 diazepam [Valium] 5 mg tablet 5 mg PO Q12HR PRN (Reason: muscle spasm) Qty: 10 RF: 0 Referrals: Carroll Cary MD [Primary Care Provider] -
[2020-07-08] MEDS: SODIUM CHLORIDE 0.9% 1,000 ML 1000 ML IV (06:44)
[2020-07-08] MEDS: KETOROLAC 60 MG/2 ML VIAL 30 MG IV (06:44)
[2020-07-08] MEDS: HYDROMORPHONE 1 MG INJ IV (06:44)
[2020-07-08 06:55] LABS: Add Manual Diff / Slide Review NO; Basophils Absolute Auto 0 /uL (0-100); Basophils Percent Auto 0.5 % (0-2); Eosinophils Absolute Auto 100 /uL (0-450); Eosinophils Percent Auto 1.3 % (2-4); Hematocrit 42.3 % (36-46); Hemoglobin 14.6 g/dL (12.0-16.0); Lymphocytes Absolute Auto 2400 /uL (1100-4500); Lymphocytes Percent Auto 30.3 % (25-40); Mean Corpuscular HGB Conc 34.6 % (30-36); Mean Corpuscular Hemoglobin 31.1 PG (26-34); Mean Corpuscular Volume 89.8 fL (80-100); Monocytes Absolute Auto 700 /uL (0-900); Monocytes Percent Auto 9.5 % (3-14); Neutrophils Absolute Auto 4600 /uL (1500-7000); Neutrophils Percent Auto 58.4 % (50-75); Platelet Count 256 X10^3/uL (150-400); Red Blood Cell Count 4.71 X10^6/uL (4.0-5.2); Red Cell Distribution Width 12.6 % (11.6-14.8); White Blood Cell Count 7.8 X10^3/uL (4.5-11.0)
[2020-07-08 07:13] LABS: Erythrocyte Sedimentation Rate 12 MM/HR (0-20)
[2020-07-08 09:06] LABS: Alanine Aminotransferase 20 IU/L (<35); Albumin 3.8 g/dL (3.5-5.0); Albumin Globulin Ratio 1.4 (1.0-2.8); Alkaline Phosphatase 79 U/L (38-126); Aspartate Aminotransferase 19 IU/L (14-36); BUN Creatinine Ratio 16.2 (6-22); Bilirubin Total 0.3 mg/dL (0.2-1.3); Blood Urea Nitrogen 12 mg/dL (7-17); C-Reactive Protein Quant 1.9 mg/dL (<1.0); Calcium 8.5 mg/dL (8.4-10.2); Carbon Dioxide 27 mmol/L (22-32); Chloride 106 mmol/L (98-107); Estimated Glomerular Filt Rate > 60.0 mL/min (>60); Globulin 2.8 g/dL (1.7-4.1); Glucose 108 mg/dL (70-100); HEMOLYSIS < 15 (0-50); Lipase 109 U/L (23-300); Potassium 4.2 mmol/L (3.4-5.1); Sodium 137 mmol/L (137-145); Total Protein 6.6 g/dL (6.3-8.2)
[2020-07-08 09:42] LABS: Procalcitonin < 0.05 ng/mL (<0.5)
--- NOTE | 2020-07-08 11:04 | PC.NURSE ---
Pt']s mom called with update on status to be discharged
== END 2020-07-08 11:24 | disposition home or self-care (01) ==
PROVIDERS: Emergency Provider Emergency Medicine; Family Provider Student in an Organized Health Care Education/Training Program; PCP Student in an Organized Health Care Education/Training Program
DX: M25.551 Pain in right hip (principal); R10.2 Pelvic and perineal pain
CPT/HCPCS: 36415; 80053; 83690; 84145; 85025; 85651; 86140; 96361; 96374; 96375; 99284; J1170; J1885

== ENCOUNTER → 2020-07-09 16:45 | Outpatient (CLI) | payer BC, SELFPAY ==
--- NOTE | 2020-07-09 | DI.MG.S_ITS ---
BILATERAL DIGITAL SCREENING MAMMOGRAM 3D/2D WITH CAD: 07/09/2020 CLINICAL: Routine screening. Comparison is made to exams dated: 04/06/2019 mammogram - [facility] and 10/18/2017 mammogram - [facility]. The tissue of both breasts is predominantly fatty. Current study was also evaluated with a Computer Aided Detection (CAD) system. No significant masses, calcifications, or other findings are seen in either breast. There has been no significant interval change. IMPRESSION: NEGATIVE There is no mammographic evidence of malignancy. A 1 year screening mammogram is recommended. This exam was interpreted at Station ID: [id number]. NOTE: For mammograms, a report in lay terms will be sent to the patient. Approximately 15% of breast malignancies will not be visualized mammographically. In the management of a palpable breast mass, a negative mammogram must not discourage biopsy of a clinically suspicious lesion. Electronically Signed By: Nikole tang/kathleen:07/10/2020 11:06:53 letter sent: Normal Exam ACR BI-RADS Category 1: Negative [id number]
== END ==
PROVIDERS: Family Provider Student in an Organized Health Care Education/Training Program; PCP Student in an Organized Health Care Education/Training Program; Referring Provider Student in an Organized Health Care Education/Training Program; Visit Provider Student in an Organized Health Care Education/Training Program
DX: Z12.31 Encounter for screening mammogram for malignant neoplasm of breast (principal)
CPT/HCPCS: 77063; 77067

== ENCOUNTER → 2020-09-25 14:20 | Outpatient (CLI) | payer OTHER, SELFPAY ==
[2020-09-25 15:48] LABS: Add Manual Diff / Slide Review NO; Basophils Absolute Auto 0 /uL (0-100); Basophils Percent Auto 0.4 % (0-2); Eosinophils Absolute Auto 100 /uL (0-450); Eosinophils Percent Auto 2.2 % (2-4); Hematocrit 43.6 % (36-46); Hemoglobin 14.5 g/dL (12.0-16.0); Lymphocytes Absolute Auto 1900 /uL (1100-4500); Lymphocytes Percent Auto 28.6 % (25-40); Mean Corpuscular HGB Conc 33.4 % (30-36); Mean Corpuscular Hemoglobin 30.2 PG (26-34); Mean Corpuscular Volume 90.6 fL (80-100); Monocytes Absolute Auto 600 /uL (0-900); Monocytes Percent Auto 8.7 % (3-14); Neutrophils Absolute Auto 4100 /uL (1500-7000); Neutrophils Percent Auto 60.1 % (50-75); Platelet Count 293 X10^3/uL (150-400); Red Blood Cell Count 4.81 X10^6/uL (4.0-5.2); Red Cell Distribution Width 12.5 % (11.6-14.8); White Blood Cell Count 6.8 X10^3/uL (4.5-11.0)
[2020-09-25 16:14] LABS: Clostridium Difficile Tox PCR Negative for C. diff
[2020-09-25 16:21] LABS: Alanine Aminotransferase 31 IU/L (<35); Albumin 4.4 g/dL (3.5-5.0); Albumin Globulin Ratio 1.3 (1.0-2.8); Alkaline Phosphatase 83 U/L (38-126); Aspartate Aminotransferase 26 IU/L (14-36); BUN Creatinine Ratio 16.5 (6-22); Bilirubin Total 0.3 mg/dL (0.2-1.3); Blood Urea Nitrogen 15 mg/dL (7-17); Calcium 9.4 mg/dL (8.4-10.2); Carbon Dioxide 30 mmol/L (22-32); Chloride 104 mmol/L (98-107); Estimated Glomerular Filt Rate > 60.0 mL/min (>60); Globulin 3.4 g/dL (1.7-4.1); Glucose 87 mg/dL (70-100); HEMOLYSIS < 15 (0-50); Potassium 4.1 mmol/L (3.4-5.1); Sodium 139 mmol/L (137-145); Total Protein 7.8 g/dL (6.3-8.2)
== END ==
PROVIDERS: Family Provider Student in an Organized Health Care Education/Training Program; PCP Student in an Organized Health Care Education/Training Program; Referring Provider Registered Nurse; Visit Provider Registered Nurse
DX: R19.7 Diarrhea, unspecified (principal)
CPT/HCPCS: 36415; 80053; 85025; 87045; 87077; 87147; 87177; 87493; 87899

== ENCOUNTER → 2020-11-18 09:12 | Outpatient (CLI) | payer OTHER, SELFPAY ==
--- NOTE | 2020-11-18 09:13 | DI.US.S_ITS ---
PROCEDURE: US ABDOMEN COMPLETE INDICATIONS: ONGOING DIARRHEA AND DIFFUSE ABDOMINAL PAIN TECHNIQUE: Real-time scanning was performed of the abdominal and retroperitoneal organs, with image documentation. COMPARISON: None. FINDINGS: Liver: Liver is normal in size and show increased liver parenchymal echotexture. A vascular homogeneously hypoechoic lesion is noted in right hepatic lobe adjacent to gallbladder fossa and measures 1.4 x 1.8 x 0.7 cm in size. Similarly hypoechoic and avascular lesion is also noted in right hepatic lobe adjacent to laila hepatis and measures 1.8 x 2.2 x 1.7 cm in size. Gallbladder: There is no gallstone. No gallbladder wall thickening or pericholecystic fluid. No sonographic Godfrey sign. Biliary ducts: Intrahepatic bile ducts are non-dilated. Extrahepatic bile duct caliber measures 3 mm. Normal is 6-7 mm or less in diameter, or 10 mm or less post-cholecystectomy. Pancreas: Visualized portions of the pancreas are sonographically normal. Spleen: Spleen is normal in size and homogeneous in echotexture. Kidneys: Kidneys are normal in size and echotexture. Right kidney measures 10.1 cm long; left kidney measures 9.8 cm long. No hydronephrosis or nephrolithiasis. No solid masses. Aorta: Visualized aorta is normal in caliber at less than 3 cm. Iliacs: Proximal common iliac arteries are normal in caliber at less than 2.5 cm. IVC: Intrahepatic inferior vena cava is patent. Miscellaneous: No free abdominal fluid. IMPRESSION: 1. Moderate hepatic steatosis with ill-defined hypoechoic and avascular areas in right hepatic lobe as described above and likely represent areas of sparing. 2. Rest of the exam is unremarkable. Dictated by: Pernell Becerril M.D. on 11/18/2020 at 18:31 Approved by: Pernell Becerril M.D. on 11/18/2020 at 18:33
[2020-11-18 10:53] LABS: C-Reactive Protein Quant 1.2 mg/dL (<1.0); Gamma Glutamyl Transpeptidase 33 U/L (12-43)
[2020-11-18 11:21] LABS: Cortisol AM (Before 10AM) 5.35 ug/dL (4.46-22.7)
[2020-11-18 11:22] LABS: TSH w/ Reflex to FT4 1.39 uIU/mL (0.47-4.68)
[2020-11-18 11:34] LABS: HIV 1 & 2 Ab/Ag 4th Gen Combo NEGATIVE (NEGATIVE)
[2020-11-19 07:07] LABS: HBsAg Screen Negative (Negative); Hepatitis A Antibody IgM Negative (Negative); Hepatitis B Core Antibody IgM Negative (Negative); Hepatitis C Antibody 0.2 s/co ratio (0.0-0.9)
[2020-11-19 16:34] LABS: Tissue Transglutaminase IgA <2 U/mL (0-3); Tissue Transglutaminase IgG <2 U/mL (0-5)
[2020-11-20 13:41] LABS: Calprotectin, Stool < 16 ug/g (0-120)
== END ==
PROVIDERS: Family Provider Student in an Organized Health Care Education/Training Program; PCP Student in an Organized Health Care Education/Training Program; Referring Provider Student in an Organized Health Care Education/Training Program; Visit Provider Student in an Organized Health Care Education/Training Program
DX: K52.9 Noninfective gastroenteritis and colitis, unspecified (principal); R63.5 Abnormal weight gain; K76.0 Fatty (change of) liver, not elsewhere classified
CPT/HCPCS: 36415; 76700; 80074; 82533; 82977; 83516; 83993; 84443; 86140; 87389

== ENCOUNTER → 2021-04-06 14:12 | Outpatient (CLI) | payer OTHER, SELFPAY ==
--- NOTE | 2021-04-06 14:14 | DI.RAD.S_ITS ---
PROCEDURE: XR KNEE LT 3V INDICATIONS: Re-evaluate knee hardware TECHNIQUE: 3 views of the knee were acquired. COMPARISON: None. FINDINGS: Bones: No fractures or dislocations. No suspicious bony lesions. Prior ACL repair. Soft tissues: No joint effusion. No suspicious soft tissue calcifications. IMPRESSION: Prior ACL repair; otherwise normal appearance of left knee. Dictated by: Zaid Ulloa RRA Interpreted: Pernell Becerril MD on 04/06/2021 at 14:33 Transcribed by: SHERI on 04/06/2021 at 14:34 Approved by: Pernell Becerril M.D. on 04/06/2021 at 15:21
--- NOTE | 2021-04-06 14:14 | DI.RAD.S_ITS ---
PROCEDURE: XR WRIST LT MIN 3V INDICATIONS: Wrist injury TECHNIQUE: 5 views of the wrist were acquired. COMPARISON: None. FINDINGS: Bones: No fractures or dislocations. No suspicious bony lesions. Scaphoid view: Intact scaphoid. Soft tissues: No suspicious soft tissue calcifications. IMPRESSION: No definite radiographic abnormality. If pain persists with conservative management, consider cross sectional imaging such as CT or MRI for further assessment. Dictated by: Zaid Ulloa RR Interpreted: Pernell Becerril MD on 04/06/2021 at 14:34 Transcribed by: SHERI on 04/06/2021 at 14:35 Approved by: Pernell Becerril M.D. on 04/06/2021 at 15:21
== END ==
PROVIDERS: Family Provider Student in an Organized Health Care Education/Training Program; PCP Student in an Organized Health Care Education/Training Program; Referring Provider Student in an Organized Health Care Education/Training Program; Visit Provider Student in an Organized Health Care Education/Training Program
DX: Z47.89 Encounter for other orthopedic aftercare (principal); S69.92XA Unspecified injury of left wrist, hand and finger(s), initial encounter; Z98.890 Other specified postprocedural states; Z97.8 Presence of other specified devices; X58.XXXA Exposure to other specified factors, initial encounter
CPT/HCPCS: 73110; 73562

== ENCOUNTER 2021-09-26 08:52 | Emergency (ER) | payer OTHER, SELFPAY ==
[2021-09-26 09:17] VITALS: BP 187/90; PULSE 74; RESP 16; TEMP 36.7; O2SAT 96; BMI 40.3
--- NOTE | 2021-09-26 09:20 | DI.MRI.S_ITS ---
PROCEDURE: MR CERVICAL SPINE WO CON INDICATIONS: right arm numb, pain, weak TECHNIQUE: Noncontrast sagittal T1 spin echo and T2 fast spin echo, sagittal STIR, foraminal oblique sagittal T2 fast spin echo, and axial gradient echo or T2 fast spin echo through the cervical spine. COMPARISON: None. FINDINGS: Image quality: Excellent. Alignment and Curvature: There is normal bony alignment. Bone Marrow: Marrow demonstrates normal overall signal. Postoperative changes of C4, C5, and C6 ACDF. Spinal Cord: Visualized spinal cord has normal size and signal. No cerebellar tonsillar herniation. Paraspinous Soft Tissues: No paravertebral masses. Prevertebral soft tissues are normal in thickness. C2-C3: No significant disc bulge. The foramina and central canal are patent. C3-C4: No significant disc bulge. The foramina and central canal are patent. C4-C5: Post ACDF with minimal foraminal and no central canal stenosis. C5-C6: Post ACDF with minimal foraminal and no canal canal stenosis. C6-C7: No significant disc bulge. The foramina and central canal are patent. C7-T1: Normal appearance. IMPRESSION: 1. No acute abnormality. 2. Postoperative changes of C3 through C6 ACDF. 3. Minimal foraminal stenosis at C4-5 and C5-6. 4. No central canal stenosis. 5. No abnormal cord signal. Dictated by: Ej Santiago M.D. on 09/26/2021 at 9:38 Approved by: Ej Santiago M.D. on 09/26/2021 at 9:44
[2021-09-26] MEDS: DEXAMETHASONE 10 MG/ML VIAL PO (09:27)
--- NOTE | 2021-09-26 09:34 | ED_ITS ---
HPI - Extremity Problem General Chief complaint: Extremity Problem,Nontraumatic Stated complaint: Right arm completely numb Time Seen by Provider: 09/26/21 09:03 Source: patient Mode of arrival: Family Vehicle History of Present Illness HPI Narrative: 45-year-old female former smoker presents with her in the chief complaint of worsening right extremity pain, numbness, tingling and weakness over the past few days. She denies any injury and has had no fever or chills. She takes no blood thinners. She does have a history of cervical stenosis which required surgery 2 years ago and states it does feel somewhat similar to the p ain experienced from that. Her pain is worse when she moves and improves with rest Related Data Home Medications Medication Instructions Recorded Confirmed gabapentin 300 mg capsule 600 mg PO DAILY cap 11/12/20 04/06/21 methocarbamol 750 mg tablet 750 mg PO BEDTIME 11/12/20 04/06/21 Previous Rx's Medication Instructions Recorded citalopram 40 mg tablet 40 mg PO QPM #90 tab 06/01/21 alprazolam 1 mg tablet 1 - 2 mg PO DAILY PRN #20 tab 08/03/21 hydrocodone 5 mg-acetaminophen 325 1 tab PO Q4-6H PRN #10 tab 09/26/21 mg tablet ketorolac 10 mg tablet 10 mg PO Q6H PRN #14 tab 09/26/21 methylprednisolone 4 mg tablets in See Rx Instructions .ROUTE 09/26/21 a dose pack (Medrol (Anthony)) .COMPLEX #21 ea Allergies Allergy/AdvReac Type Severity Reaction Status Date / Time Penicillins [PENICILLINS] Allergy Severe PT STATES Verified 04/06/21 13:49 I HAD TO HAVE MY HEART RESTARTED amoxicillin Allergy Rash, Verified 04/06/21 13:49 Fever, and Flu like symtems amlodipine AdvReac Intermediate Dizziness Verified 04/06/21 13:49 Review of Systems Review of Systems Narrative: GENERAL: Denies chills, fatigue, malaise, fever, sweats. HEENT: Denies sinus pain, ear pain, sore throat, difficulty swallowing, dizziness. RESPIRATORY: Denies dyspnea, cough, wheezing, hemoptysis, sputum. CARDIOVASCULAR: Denies chest pain, palpitations, orthopnea, edema, GASTROINTESTINAL: Denies nausea, vomiting, abdominal pain, diarrhea, constipation, melena. : Denies dysuria, frequency, incontinence, hematuria, urinary retention. MUSCULOSKELETAL: denies weakness, joint pain, or bony pain SKIN: Denies rash, skin lesions, or other NEUROLOGIC: See HPI PSYCHIATRIC: No concerning psychosocial issues. 12 point review of systems is negative except for those stated above Patient History Medical History Abnormal Pap smear of cervix (~1985) Chicken pox (~1982) Depression (~2011) Endometriosis (~1985) Fibroids (~1985) Healthy adult Heavy menstrual period (~1985) Hypertension (~1999) Infertility (~1985) Insomnia Irregular menstrual cycle (~1985) Morbid obesity with body mass index (BMI) of 40.0 to 49.9 Obesity (BMI 30-39.9) Obstructive sleep apnea Ovarian cyst (~1985) Painful menstrual periods (~1985) PCOS (polycystic ovarian syndrome) Surgical History Anesthesia Deviated septum H/O knee surgery H/O wrist surgery History of facial surgery (~2010) History of surgery on right wrist (~1982) History of third molar tooth extraction Status post cervical discectomy Status post cervical spinal fusion Status post laparoscopic supracervical hysterectomy (04/19/16) Status post laparoscopy (~1999) Family History Mother COPD (chronic obstructive pulmonary disease) Hypertension Depression Brother Depression Grandfather Liver disease Grandmother Diabetes mellitus Hypertension Social History Smoking Status: Former smoker Smoking Status: Former smoker alcohol intake frequency: 0-2 drinks per day Substance Use Type: does not use Exam Narrative Exam Narrative: GENERAL: [45 year old patient appears stated age. Well-developed patient, in mild distress. HEAD: Atraumatic. Normocephalic. EYES: Pupils equal round and reactive. Extraocular motions intact. No scleral icterus. No injection or drainage. ENT: Nose without bleeding, purulent drainage. Throat without erythema, tonsillar hypertrophy or exudate. Airway patent. NECK: Trachea midline. Non tender, no change with axial load CARDIOVASCULAR: Regular rate and rhythm without murmurs, gallops, or rubs. RESPIRATORY: Clear to auscultation. Breath sounds equal bilaterally. No wheezes, rales, or rhonchi. GASTROINTESTINAL: Abdomen soft, non-tender, nondistended. EXTREMITIES: No obvious swelling or redness. No measured weakness (5/5). Complains of widespread tingling in her RUE. Cap refill <2 seconds, radial pulse bounding BACK: Nontender without deformity or crepitance. No flank tenderness. NEURO: AOx3. SKIN: No rash or erythema of visible areas Initial Vital Signs Initial Vital Signs: Vital Signs Temperature 98.1 F 09/26/21 09:17 Pulse Rate 74 09/26/21 09:17 Respiratory Rate 16 09/26/21 09:17 Blood Pressure 187/90 H 09/26/21 09:17 Pulse Oximetry 96 09/26/21 09:17 Course Orders Ordered: ED Orders 09/26/21 09:20 MR cervical spine wo con Stat 09/26/21 10:54 US periph venous up extrem rt Stat Discontinued Medications Dexamethasone (Dexamethasone 10 Mg/Ml Vial) 10 mg PO NOW ONE Stop: 09/26/21 09:21 Last Admin: 09/26/21 09:27 Dose: 10 mg Documented by: YULIET Reevaluation(s) Reevaluation #1: Patient has significant improvement symptoms with above-stated therapies. Vital Signs Vital signs: Vital Signs - 8 hr 09/26/21 09:17 09/26/21 11:53 Temperature 98.1 F Pulse Rate 74 69 Respiratory Rate 16 18 Blood Pressure 187/90 H 191/90 H Pulse Oximetry 96 98 Discharge Plan Departure Patient Disposition: Home Clinical Impression: Cervical radiculopathy Instructions: DI for Neck Pain Activity Restrictions/Additional Instructions: *You have been diagnosed with [right arm pain and tingling from cervical radiculopathy ] *What to do: *I've sent a few prescriptions to your pharmacy. Also, please consider taking your Gabapentin twice daily until follow up. Otherwise please continue to take your regular medications as directed. [ x] New medication prescriptions sent to your pharmacy: [[facility] ] [ ] New medication written as a paper prescription [ ] No new medications given *Please follow up with your primary care provider in 2-3 days, call for an appointment. Let them know you were seen in the Emergency Department and that we ask that you be seen in follow up. We will electronically transmit a record of today's note if your PCP is in our system *If you do not have a primary care provider please contact the [facility] Resource line at [phone]. They will ask some questions about your medical history and help get you set up with a doctor in the community. *Return to Emergency Department if you should have any new, worsening or concerning symptoms, such as [fever greater than 101 F, shaking chills, worsening pain, persistent vomiting or other bothersome symptoms] Prescriptions: New ketorolac 10 mg tablet 10 mg PO Q6H PRN (Reason: pain) Qty: 14 0RF methylprednisolone [Medrol (Anthony)] 4 mg tablets,dose pack See Rx Instructions .ROUTE .COMPLEX Qty: 21 0RF Rx Instructions: orally per package directions hydrocodone-acetaminophen 5-325 mg tablet 1 tab PO Q4-6H PRN (Reason: pain) Qty: 10 0RF No Action citalopram 40 mg tablet 40 mg PO QPM Qty: 90 3RF alprazolam 1 mg tablet 1 - 2 mg PO DAILY PRN (Reason: Panic symptoms) Qty: 20 1RF gabapentin 300 mg capsule 600 mg PO DAILY 0RF methocarbamol 750 mg tablet 750 mg PO BEDTIME 0RF Referrals: Carroll Cary MD [Primary Care Provider] -
--- NOTE | 2021-09-26 10:54 | DI.US.S_ITS ---
PROCEDURE: US PERIPH VENOUS UP EXTREM RT INDICATIONS: pain, swelling, tingling, concerned for DVT TECHNIQUE: Real-time imaging, as well as color and pulse Doppler interrogation, was performed of the right upper extremity deep veins from the inferior neck to the antecubital fossa. COMPARISON: None. FINDINGS: The internal jugular vein, visualized portions of the subclavian vein, axillary, and brachial veins are free of intraluminal thrombus. Where physically possible, the veins are normally compressible. Color and pulse Doppler demonstrate normal intraluminal flow, with expected phasicity and pulsatility. Additional scanning of the cephalic and basilic veins of the superficial system demonstrate normal compressibility, without thrombus. IMPRESSION: No DVT in the right upper extremity. Dictated by: Ej Santiago M.D. on 09/26/2021 at 10:46 Approved by: Ej Santiago M.D. on 09/26/2021 at 10:48
[2021-09-26 11:53] VITALS: BP 191/90; PULSE 69; RESP 18; O2SAT 98
== END 2021-09-26 11:55 | disposition home or self-care (01) ==
PROVIDERS: Emergency Provider Emergency Medicine; Family Provider Student in an Organized Health Care Education/Training Program; PCP Student in an Organized Health Care Education/Training Program
DX: M54.12 Radiculopathy, cervical region (principal); Z87.891 Personal history of nicotine dependence
CPT/HCPCS: 72141; 93971; 99284; J1100

== ENCOUNTER → 2023-03-23 | Outpatient (CLI) | payer OTHER, SELFPAY | LOC: MAMMO 11-28 09:21 | PROVIDERS: Family Provider Student in an Organized Health Care Education/Training Program; PCP Student in an Organized Health Care Education/Training Program; Referring Provider Internal Medicine; Visit Provider Internal Medicine ==

== ENCOUNTER 2023-06-30 06:58 | Day surgery (SDC) | payer OTHER, SELFPAY ==
--- NOTE | 2023-06-30 | PATH_ITS ---
[facility] Accession Number: [id number] No. of containers..03 Tissue . 01 Material submitted: . PART A: colon - DESCENDING POLYP PART B: colon - TRANSVERSE POLYP PART C: rectum - RECTUM POLYP . 01 Diagnosis: A. Descending Colon, Polyp: Hyperplastic polyp. . B. Transverse Colon, Polyp: Sessile serrated adenoma. . C. Rectum, Polyp: Tubulovillous adenoma. No evidence of malignancy or high-grade dysplasia. [facility] 07/05/2023 1149 Local . 01 Electronically signed: . Imelda Guardado MD, Pathologist NPI- [id number] . 01 Gross description: . Part A: DESCENDING POLYP: Received in formalin is multiple fragment(s) of singleton, soft tissue measuring 1.0 x 0.5 x 0.2 cm in aggregate submitted entirely in 1 cassette(s) Part B: TRANSVERSE POLYP: Received in formalin is multiple fragment(s) of singleton, soft tissue measuring 1.2 x 0.5 x 0.2 cm in aggregate submitted entirely in 1 cassette(s) Part C: RECTUM POLYP: Received in formalin is multiple fragment(s) of singleton, soft tissue measuring 1.5 x 0.5 x 0.3 cm in aggregate submitted entirely in 1 cassette(s) /[facility] 07/03/2023 0408 Local . 01 Pathologist provided ICD-10: D12.3, D12.8 . 01 CPT . 087774, 270876, 222911 Specimen Comment: A courtesy copy of this report has been sent to [phone] Performed at: 01 [facility] [address] [place] [address] Suite Formerly named [facility], [place], [place] [id number] MD Mickey Faustin MD Phone: [phone]
[2023-06-30] MEDS: LACTATED RINGERS 1,000 ML 42 ML IV (07:17)
[2023-06-30 07:21] VITALS: BP 155/87; PULSE 61; RESP 21; TEMP 35.7; O2SAT 97; BMI 41.1
--- NOTE | 2023-06-30 07:49 | P.HP_ITS ---
History of Present Illness History of Present Illness Date Patient Seen: 06/30/23 Time Patient Seen: 07:49 Chief complaint: SDC Narrative: Jessy is a 47 year old woman with hematochezia. See office note from March for details. [facility] Medical History Abnormal Pap smear of cervix (~1985) Chicken pox (~1982) Depression (~2011) Endometriosis (~1985) Fibroids (~1985) Heavy menstrual period (~1985) Infertility (~1985) Insomnia Irregular menstrual cycle (~1985) Morbid obesity with body mass index (BMI) of 40.0 to 49.9 Obstructive sleep apnea Ovarian cyst (~1985) Painful menstrual periods (~1985) PCOS (polycystic ovarian syndrome) Surgical History Anesthesia Deviated septum H/O knee surgery H/O wrist surgery History of facial surgery (~2010) History of surgery on right wrist (~1982) History of third molar tooth extraction Status post cervical discectomy Status post cervical spinal fusion Status post laparoscopic supracervical hysterectomy (04/19/16) Status post laparoscopy (~1999) Family History Mother COPD (chronic obstructive pulmonary disease) Hypertension Depression Brother Depression Grandfather Liver disease Grandmother Diabetes mellitus Hypertension Social History household members: spouse Smoking Status: Former smoker alcohol intake: current Meds Home Medications and Allergies Home Medications Medication Instructions Recorded Confirmed Type methocarbamol 750 mg tablet 750 mg PO BEDTIME #90 tabs 07/20/22 06/30/23 Rx alprazolam 0.5 mg tablet 0.5 - 1 mg PO BEDTIME PRN Panic 01/03/23 06/30/23 Rx symptoms #15 tabs estradiol 0.075 mg/24 hr 1 patch transdermal 2XW 01/03/23 06/30/23 History semiweekly transdermal patch gabapentin 600 mg tablet 600 mg PO DAILY #90 tabs 01/03/23 06/30/23 Rx citalopram 40 mg tablet 40 mg PO QPM #90 tabs 05/16/23 06/30/23 Rx Allergies Allergy/AdvReac Type Severity Reaction Status Date / Time Penicillins [PENICILLINS] Allergy Severe PT STATES Verified 06/30/23 07:19 I HAD TO HAVE MY HEART RESTARTED amoxicillin Allergy Rash, Verified 06/30/23 07:19 Fever, and Flu like symtems epinephrine AdvReac Severe Anaphylaxis Verified 06/30/23 07:19 amlodipine AdvReac Intermediate Dizziness Verified 06/30/23 07:19 melatonin AdvReac Intermediate Diarrhea Verified 06/30/23 07:19 Exam Vital Signs (past 8 hours): - 06/30/23 07:21 Temperature 96.3 F L Pulse Rate 61 Respiratory Rate 21 Blood Pressure 155/87 H Pulse Oximetry 97 Oxygen Delivery Method Room Air Oxygen Delivery Method Room Air Const General: No acute distress Assessment & Plan Assessment and plan (1) Hematochezia: Status: Acute Plan Proceed with colonoscopy for hematochezia
--- NOTE | 2023-06-30 08:59 | PM.OP.COLON ---
Operative Date/Time/Diagnoses Date of procedure: 06/30/23 Time of procedure: 08:59 Pre-op diagnosis: Rectal bleeding Post-op diagnosis: same Procedure & Clinicians Study performed: Colonoscopy Same procedure as scheduled: Yes Surgeon: Sandro De La Cruz Procedure Notes Procedure in detail: Surgeon: Sandro De La Cruz MD Anesthesia: Nadia Miranda CRNA Procedure: The patient was brought to the endoscopy suite, placed in left lateral decubitus position. The patient was connected to monitoring devices. A time-out was performed. Sedation was administered. Once the patient was adequately sedated, a digital rectal exam was performed and was normal. The scope was then inserted and advanced to the cecum where the appendiceal orifice was identified and photographed. The terminal ileum was intubated and no abnormalities were seen. The scope was then slowly withdrawn over greater than 6 minutes. The mucosa was thoroughly inspected. The prep was inadequate to completely clear the colon. There was a 1 cm polyp in the distal transverse colon which was removed with a hot snare. There was a 1 cm polyp in the descending colon which was removed with a hot snare. There were 2 polyps in the rectum, each about 7 mm, removed with cold snare and sent together. The scope was retroflexed in the rectum. Internal hemorrhoids were seen. The scope was straightened and removed. The patient was awakened and brought to recovery. Scope withdrawal time: 15 minutes Sedation time: 27 minutes EBL: 5 mL Findings: 4 polyps as outlined above and incomplete prep Post-procedure Disposition: PACU
[2023-06-30 09:10] VITALS: BP 173/87; PULSE 70; RESP 19; TEMP 36.5; O2SAT 94
[2023-06-30 09:15] VITALS: BP 157/111; PULSE 76; RESP 13; O2SAT 96
[2023-06-30 09:20] VITALS: BP 146/88; PULSE 71; RESP 14; TEMP 36.4; O2SAT 98
== END 2023-06-30 09:35 | disposition home or self-care (01) ==
PROVIDERS: Family Provider Student in an Organized Health Care Education/Training Program; PCP Student in an Organized Health Care Education/Training Program; Referring Provider Surgery; Visit Provider Surgery
PROC: 0DJD8ZZ Inspection of Lower Intestinal Tract, Via Natural or Artificial Opening Endoscopic (ICD-10-PCS; CPT 45378; principal; 2023-06-30 08:15)
DX: K62.5 Hemorrhage of anus and rectum (principal); K64.8 Other hemorrhoids; D12.3 Benign neoplasm of transverse colon; D12.8 Benign neoplasm of rectum
CPT/HCPCS: 45385; J2704

== ENCOUNTER 2023-09-13 12:38 | Day surgery (SDC) | payer OTHER, SELFPAY ==
--- NOTE | 2023-09-13 | PATH_ITS ---
[facility] Accession Number: [id number] No. of containers..01 Tissue . 01 Material submitted: . sigmoid colon - SIGMOID POLYPS . 01 Diagnosis: Sigmoid Colon, Polyps: Hyperplastic polyp, one fragment. [facility] 09/21/2023 1743 Local . 01 Electronically signed: . Imelda Guardado MD, Pathologist NPI- [id number] . 01 Gross description: . SIGMOID POLYPS : Received in formalin is 1 fragment(s) of singleton, soft tissue measuring 0.7 x 0.3 x 0.3 cm submitted entirely in 1 cassette(s) /[facility] 09/14/2023 1840 Local . 01 Pathologist provided ICD-10: K63.5 . 01 CPT . 424674 Specimen Comment: A courtesy copy of this report has been sent to [phone] Performed at: 01 [facility] [address] [place] [address], [place], [place] [id number] MD Mickey Faustin MD Phone: [phone]
[2023-09-13 12:50] VITALS: BMI 43.7
[2023-09-13 13:01] VITALS: BP 151/88; PULSE 64; RESP 17; TEMP 36.6; O2SAT 96
[2023-09-13] MEDS: LACTATED RINGERS 1,000 ML 42 ML IV (13:05)
--- NOTE | 2023-09-13 13:53 | PM.HP.1 ---
History of Present Illness History of Present Illness Date Patient Seen: 09/13/23 Chief complaint: SDC Narrative: 47-year-old woman here for screening colonoscopy. She recently had a colonoscopy performed several months ago but the quality of the prep was inadequate. No abdominal concerns today. [facility] Medical History Morbid obesity with body mass index (BMI) of 40.0 to 49.9 Obstructive sleep apnea Depression (~2011) Chicken pox (~1982) PCOS (polycystic ovarian syndrome) Painful menstrual periods (~1985) Ovarian cyst (~1985) Irregular menstrual cycle (~1985) Infertility (~1985) Heavy menstrual period (~1985) Fibroids (~1985) Endometriosis (~1985) Abnormal Pap smear of cervix (~1985) Insomnia Surgical History Status post cervical spinal fusion Status post cervical discectomy Anesthesia History of facial surgery (~2010) History of surgery on right wrist (~1982) Deviated septum H/O knee surgery H/O wrist surgery Status post laparoscopic supracervical hysterectomy (04/19/16) Status post laparoscopy (~1999) History of third molar tooth extraction Family History Mother COPD (chronic obstructive pulmonary disease) Hypertension Depression Brother Depression Grandfather Liver disease Grandmother Diabetes mellitus Hypertension Social History household members: spouse Smoking Status: Former smoker alcohol intake: never Meds Home Medications and Allergies Home Medications Medication Instructions Recorded Confirmed Type methocarbamol 750 mg tablet 750 mg PO BEDTIME #90 tabs 07/20/22 09/13/23 Rx estradiol 0.075 mg/24 hr 1 patch transdermal 2XW 01/03/23 09/13/23 History semiweekly transdermal patch gabapentin 600 mg tablet 600 mg PO DAILY #90 tabs 01/03/23 09/13/23 Rx citalopram 40 mg tablet 40 mg PO QPM #90 tabs 05/16/23 09/13/23 Rx alprazolam 0.5 mg tablet 0.5 - 1 mg (1 - 2 x 0.5 mg) PO 09/05/23 09/13/23 Rx BEDTIME PRN Panic symptoms #15 tabs Allergies Allergy/AdvReac Type Severity Reaction Status Date / Time Penicillins [PENICILLINS] Allergy Severe PT STATES Verified 09/13/23 12:53 I HAD TO HAVE MY HEART RESTARTED amoxicillin Allergy Rash, Verified 09/13/23 12:53 Fever, and Flu like symtems diphenhydramine Allergy Hives Verified 09/13/23 12:54 [From Benadryl] epinephrine AdvReac Severe Anaphylaxis Verified 09/13/23 12:53 amlodipine AdvReac Intermediate Dizziness Verified 09/13/23 12:53 melatonin AdvReac Intermediate Diarrhea Verified 09/13/23 12:53 Exam Vital Signs (past 8 hours): - 09/13/23 13:01 Temperature 97.9 F Pulse Rate 64 Respiratory Rate 17 Blood Pressure 151/88 H Pulse Oximetry 96 Oxygen Delivery Method Room Air Oxygen Delivery Method Room Air Narrative Exam Narrative: General adult woman alert oriented no acute distress Chest nonlabored respiration Extremities warm well perfused Assessment & Plan Assessment & Plan narrative: The patient requires colorectal screening and colonoscopy is recommended. Technical details were discussed. Risks, benefits, alternatives explained. Risks including but not limited to myocardial infarction, aspiration, bleeding, pain, missed lesion, incomplete examination, need for further radiographic studies, colonic perforation, and need for major abdominal surgery were discussed. All questions were answered to their satisfaction, and they are in agreement with this plan.
[2023-09-13 14:25] VITALS: BP 108/53; PULSE 63; RESP 14; TEMP 36.1; O2SAT 97
[2023-09-13 14:30] VITALS: BP 122/53; PULSE 68; RESP 17; O2SAT 97
[2023-09-13 14:35] VITALS: PULSE 71; RESP 16; O2SAT 97
--- NOTE | 2023-09-13 14:36 | P.OP.COLON_ITS ---
Operative Date/Time/Diagnoses Date of procedure: 09/13/23 Time of procedure: 14:36 Pre-op diagnosis: Colorectal screening Post-op diagnosis: other (Colonic polyps x2) Procedure & Clinicians Study performed: Colonoscopy Same procedure as scheduled: Yes Indications: Colorectal screening Surgeon: Mukul Sood Procedure Notes Procedure in detail: The history and physical was performed/updated and the patient is ASA class is 2. The procedure was discussed in detail with the patient. Potential risks complications including infection, bleeding, missed diagnosis, perforation, need for surgery, and were explained. Their questions were answered and informed consent was obtained. Patient was brought to the procedure room and placed standard monitoring equipment. The patient's vital signs were monitored continuously throughout the entire procedure. Prior to starting time-out was performed. The patient was placed in the left lateral recumbent position. Procedural sedation was administered by anesthesia. Examination began with a thorough inspection of the perianal area there was no evidence of fissures, fistulae, external hemorrhoids or cutaneous malignancy. The colonoscopy scope was then placed into the anal canal and was advanced to the cecum, which was identified by the ileocecal valve, the appendiceal orifice and the confluence of the taenia. The scope was then slowly withdrawn examining colon thoroughly in all directions, irrigating it of any residual stool. The scope was retroflexed within the rectum The patient tolerated the procedure well. They will be discharged once criteria are met. The prep was of good/excellent quality. The withdrawl time was 7 minutes. FINDINGS * Sigmoid colon -polyps 3-5 mm removed with cold snare Specimen(s): other (Sigmoid colon polyps) Impression: Colonic polyps x2 Post-procedure Plan for aftercare: Follow-up is dependent on pathology findings Disposition: same day surgery
[2023-09-13 14:38] VITALS: BP 144/84; PULSE 68; RESP 15; TEMP 36.4; O2SAT 97
[2023-09-13 14:45] VITALS: BP 138/89; PULSE 62; RESP 18; TEMP 36.2; O2SAT 98
== END 2023-09-13 15:00 | disposition home or self-care (01) ==
PROVIDERS: Family Provider Student in an Organized Health Care Education/Training Program; PCP Student in an Organized Health Care Education/Training Program; Referring Provider Surgery; Visit Provider Surgery
PROC: 0DJD8ZZ Inspection of Lower Intestinal Tract, Via Natural or Artificial Opening Endoscopic (ICD-10-PCS; CPT 45378; principal; 2023-09-13 13:15)
DX: Z12.11 Encounter for screening for malignant neoplasm of colon (principal); K63.5 Polyp of colon
CPT/HCPCS: 45385

== ENCOUNTER → 2023-10-05 08:15 | Outpatient (CLI) | payer OTHER, SELFPAY ==
--- NOTE | 2023-10-05 08:16 | DI.MG.S_ITS ---
BILATERAL DIGITAL SCREENING MAMMOGRAM 3D/2D WITH CAD: 10/05/2023 CLINICAL: Routine screening. Comparison is made to exams dated: 07/09/2020 mammogram, 04/06/2019 mammogram - [facility], and 10/18/2017 mammogram - [facility]. Both breasts are almost entirely fatty (category a/<25% glandular tissue). Current study was also evaluated with a Computer Aided Detection (CAD) system. No significant masses, calcifications, or other findings are seen in either breast. There has been no significant interval change. IMPRESSION: NEGATIVE There is no mammographic evidence of malignancy. A 1 year screening mammogram is recommended. Based on the Tyrer Cuzick model (a risk assessment model) the patient's lifetime risk is 5.5% and her 10 year risk is 1.1%. According to the ACR, ACS, and NCCN guidelines, an annual breast MRI exam along with mammogram is recommended if the patient's lifetime risk is 20% or greater. This exam was interpreted at Station ID: [id number]. NOTE: For mammograms, a report in lay terms will be sent to the patient. Approximately 15% of breast malignancies will not be visualized mammographically. In the management of a palpable breast mass, a negative mammogram must not discourage biopsy of a clinically suspicious lesion. Electronically Signed By: Jorge crawford/kathleen:10/05/2023 10:24:03 letter sent: Normal Exam ACR BI-RADS Category 1: Negative 3341F
== END ==
PROVIDERS: Family Provider Student in an Organized Health Care Education/Training Program; PCP Student in an Organized Health Care Education/Training Program; Referring Provider Student in an Organized Health Care Education/Training Program; Visit Provider Student in an Organized Health Care Education/Training Program
DX: Z12.31 Encounter for screening mammogram for malignant neoplasm of breast (principal)
CPT/HCPCS: 77063; 77067

== ENCOUNTER → 2024-09-24 15:26 | Outpatient (CLI) | payer BC, SELFPAY ==
--- NOTE | 2024-09-24 15:27 | DI.RAD.S_ITS ---
PROCEDURE: XR CHEST 2V INDICATIONS: cough with colored mucus TECHNIQUE: 2 views of the chest were acquired. COMPARISON: None. FINDINGS: Surgical changes and devices: Cervical fusion hardware partially seen Lungs and pleura: No dense consolidation or pleural effusions. Mediastinum: Normal heart size Bones and chest wall: Mild thoracic spondylotic changes. IMPRESSION: No acute radiographic abnormality. Dictated by: Vishal Jarquin M.D. on 09/24/2024 at 16:17 Approved by: Vishal Jarquin M.D. on 09/24/2024 at 16:17
[2024-09-24 16:44] LABS: Add Manual Diff / Slide Review NO; Basophils Absolute Auto 0 /uL (0-100); Basophils Percent Auto 0.5 % (0-2); Eosinophils Absolute Auto 100 /uL (0-450); Eosinophils Percent Auto 1.6 % (2-4); Hematocrit 43.8 % (36-46); Hemoglobin 14.8 g/dL (12.0-16.0); Lymphocytes Absolute Auto 2100 /uL (1100-4500); Lymphocytes Percent Auto 24.3 % (25-40); Mean Corpuscular HGB Conc 33.7 % (30-36); Mean Corpuscular Hemoglobin 29.9 PG (26-34); Mean Corpuscular Volume 88.6 fL (80-100); Monocytes Absolute Auto 700 /uL (0-900); Monocytes Percent Auto 7.5 % (3-14); Neutrophils Absolute Auto 5800 /uL (1500-7000); Neutrophils Percent Auto 66.1 % (50-75); Platelet Count 299 X10^3/uL (150-400); Red Blood Cell Count 4.94 X10^6/uL (4.0-5.2); White Blood Cell Count 8.8 X10^3/uL (4.5-11.0)
[2024-09-24 17:16] LABS: Alanine Aminotransferase 25 IU/L (<35); Albumin 4.6 g/dL (3.5-5.0); Albumin Globulin Ratio 1.4 (1.0-2.8); Alkaline Phosphatase 83 U/L (38-126); Aspartate Aminotransferase 26 IU/L (14-36); BUN Creatinine Ratio 17.8 (6-22); Bilirubin Total 0.6 mg/dL (0.2-1.3); Blood Urea Nitrogen 13 mg/dL (7-17); Calcium 9.5 mg/dL (8.4-10.2); Carbon Dioxide 25 mmol/L (22-32); Chloride 102 mmol/L (98-107); Cholesterol 211 mg/dL (140-199); Estimated Glomerular Filt Rate > 60 mL/min (>60); Globulin 3.2 g/dL (1.7-4.1); Glucose 91 mg/dL (70-100); HDL Cholesterol 56 mg/dL (40-60); HEMOLYSIS < 15 (0-50); LDL Cholesterol Calculated 102 mg/dL (<100); Sodium 136 mmol/L (137-145); Total Protein 7.8 g/dL (6.3-8.2); Triglycerides 263 mg/dL (35-150)
[2024-09-24 18:08] LABS: Creatinine Urine Random 63.92 mg/dL
[2024-09-24 18:13] LABS: Microalbumin Urine Random < 0.6 mg/dL (0-1.6)
[2024-09-24 18:55] LABS: Hemoglobin A1C% w Est Avg Glu 5.4 % (4.0-6.0)
== END ==
LOC: LAB 15:27
PROVIDERS: Family Provider Student in an Organized Health Care Education/Training Program; PCP Student in an Organized Health Care Education/Training Program; Referring Provider Student in an Organized Health Care Education/Training Program; Visit Provider Student in an Organized Health Care Education/Training Program
DX: R05.9 Cough, unspecified (principal); E11.9 Type 2 diabetes mellitus without complications; E66.01 Morbid (severe) obesity due to excess calories; I10 Essential (primary) hypertension
CPT/HCPCS: 71046; 80053; 80061; 82043; 82570; 83036; 85025

== ENCOUNTER → 2024-10-06 12:37 | Outpatient (CLI) | payer BC, SELFPAY ==
--- NOTE | 2024-10-06 | DI.MG.S_ITS ---
BILATERAL DIGITAL SCREENING MAMMOGRAM 3D/2D WITH CAD: 10/06/2024 CLINICAL: Routine screening. Comparison is made to exams dated: 10/05/2023 mammogram, 07/09/2020 mammogram, and 04/06/2019 mammogram - [facility]. The breasts are almost entirely fatty (category a/<25% glandular tissue). Current study was also evaluated with a Computer Aided Detection (CAD) system. No significant masses, calcifications, or other findings are seen in either breast. There has been no significant interval change. IMPRESSION: NEGATIVE There is no mammographic evidence of malignancy. A 1 year screening mammogram is recommended. Based on the Tyrer Cuzick model (a risk assessment model) the patient's lifetime risk is 5.6% and her 10 year risk is 1.2%. According to the ACR, ACS, and NCCN guidelines, an annual breast MRI exam along with mammogram is recommended if the patient's lifetime risk is 20% or greater. This exam was interpreted at Station ID: [id number]. NOTE: For mammograms, a report in lay terms will be sent to the patient. Approximately 15% of breast malignancies will not be visualized mammographically. In the management of a palpable breast mass, a negative mammogram must not discourage biopsy of a clinically suspicious lesion. Electronically Signed By: Nikole tang/kathleen:10/08/2024 09:48:04 letter sent: Normal Exam ACR BI-RADS Category 1: Negative
== END ==
PROVIDERS: Family Provider Student in an Organized Health Care Education/Training Program; PCP Student in an Organized Health Care Education/Training Program; Referring Provider Student in an Organized Health Care Education/Training Program; Visit Provider Student in an Organized Health Care Education/Training Program
DX: Z12.31 Encounter for screening mammogram for malignant neoplasm of breast (principal); R92.313 Mammographic fatty tissue density, bilateral breasts
CPT/HCPCS: 77063; 77067

== ENCOUNTER → 2025-05-09 14:49 | Outpatient (CLI) | payer BC, SELFPAY | LOC: PHYS 14:50 | PROVIDERS: Family Provider Student in an Organized Health Care Education/Training Program; PCP Student in an Organized Health Care Education/Training Program; Referring Provider Student in an Organized Health Care Education/Training Program; Visit Provider Student in an Organized Health Care Education/Training Program | DX: R20.0 Anesthesia of skin (principal); R20.2 Paresthesia of skin | CPT/HCPCS: 95886; 95910 ==